=== PATIENT | female | born 1945 | race Two or more races ===

== ENCOUNTER 2024-08-10 18:28 | Inpatient (IN) | payer MEDICARE, MEDICAID ==
[~2024-08-10] VITALS: Ht 157.5 cm; Wt 84.0 kg
--- NOTE | 2024-08-10 19:25 | ED.PDOC ---
HPI Comments HPI: Poor Historian. 79-year-old female presents to the emergency department for evaluation of midsternal chest pressure pain nonradiating constant. No alleviating or precipitating factors. Patient has been having cough and chills and nausea and dizziness for the last four days. All her family members are sick with similar symptoms. Past Medcial History: Hypertension, diabetes, Past Surgical History: Ear and eye surgery REVIEW OF SYSTEMS: CONSTITUTIONAL: Denies acute: fever, diaphoresis, HEAD: Denies acute: headache, photophobia Eyes: Denies acute: Double vision, vision loss, eye pain, eye discharge. EARS: Denies acute: tinnitus, hearing loss, ear discharge, ear pain, THROAT: Denies acute: sore throat, swelling, difficulty swallowing , pain with swallowing, change in voice. NECK: Denies acute: neck pain, neck swelling, stiff neck. HEART: Denies acute : palpitations, LUNGS: Denies acute: wheezing, hemoptysis ABDOMEN: Denies acute: abdominal pain, Vomiting, diarrhea, melena , hematemesis, hematochezia SKIN: Denies acute: rash, redness, lesions, itchiness. EXTREMITIES: Denies acute: calf pain, numbness, tingling, weakness, denies pain in extremity. Denies acute: Low back pain. Neuro: Denies acute: focal neurological deficit, motor or sensory focal neurological deficit, tremors, seizure like activity, confusion, change in mental status, loss of bowel or bladder function, cauda equina like symptoms. : Denies acute: dysuria, hematuria, flank pain, increase in urinary frequency. PSYCH: Denies acute: hallucination, suicidal ideation, homicidal ideation. FEMALE: Denies acute: abnormal vaginal bleeding, foul odor, unusual discharge. PHYSICAL EXAM: General: no acute distress, awake and alert. Head: normocephalic, atraumatic. Neck: supple, trachea is midline, no swelling. Throat: Normal phonation. Eyes:, no erythema, no purulent discharge, no proptosis, no icterus. Heart: regular rate, regular rhythm, no significant murmur appreciated. Lungs: no apparent respiratory distress, No wheezing, bilateral rhonchi, no crackles. No stridors Abdomen: non tender to palpation, non distended, soft, no guarding, no rebound, + bowel sounds. Neuro: Awake, Alert, oriented to name, self, situation, follows commands GCS=15. Speech is normal. Skin: no petechia, no purpura, no cyanosis, non-pale, not jaundice. Lower extremities: --trace bilateral - Pitting edema no deformity, no focal swelling, no calf TTP. Makes eye contact. moves all four extremities. Face: no apparent facial droop. Chief Complaint: Chest Pain Time Seen by MD: 19:05 Reviewed Notes: Nurses Notes, Medications, Allergies Allergies: Coded Allergies: Gabapentin (Verified Allergy, Unknown, 08/10/24) Tramadol (Verified Allergy, Unknown, 08/10/24) Information Source: Patient Departure 1 Departure Time of Disposition: 19:24 Impression: Primary Impression: Chest pain Disposition: ADMITTED INPATIENT Admit to: Tele Condition: Guarded Discharged With: Self ABILIO LEES DO Aug 10, 2024 19:25
[2024-08-10] MEDS: cefTRIAXone 1GM/50ML D5W 50 ML IV ONE (19:30)
[2024-08-10] MEDS: IPRATROPIUM BROM 0.5 MG/2.5ML INH SOL NEB ONE (19:58)
[2024-08-10] MEDS: ALBUTEROL SULF 2.5 MG/0.5ML(0.5%) NEB SOLN NEB ONE (19:58)
[2024-08-10 20:00] LABS: Basophils # (auto) 0.1 10 ^3/uL (0-0.2); Basophils % (auto) 0.6 % (0.0-2.0); Eosinophils # (auto) 0.2 10 ^3/uL (0-0.8); Eosinophils % (auto) 2.6 % (0.0-7.0); Hematocrit 39.7 % (36.0-46.0); Hemoglobin 13.3 g/dL (12.2-16.2); Lymphocytes # (auto) 2.8 10 ^3/uL (0.4-5.4); Lymphocytes % (auto) 30.8 % (10.0-50.0); Mean Corpuscular Hemoglobin 30.5 pg (28.0-32.0); Mean Corpuscular Hgb Conc. 33.5 g/dL (32.0-36.0); Monocytes # (auto) 1.1 10 ^3/uL (0-1.3); Monocytes % (auto) 11.6 % (0.0-12.0); Neutrophils % (auto) 54.4 % (37.0-80.0); Nucleated Red Blood Cells % 0.1 %; Platelet Count (auto) 204 10^3/uL (140-450); Red Blood Cells 4.37 10^6/uL (4.0-5.20); Red Cell Distribution Width 14.5 % (11.8-14.3); White Blood Cell 9.2 10^3/uL (4.4-10.8)
[2024-08-10 20:32] LABS: Alanine Aminotransferase 39 U/L (7-40); Albumin 3.7 g/dL (3.2-4.8); Alkaline Phosphatase 75 U/L (46-116); Anion Gap 8 (5-15); Aspartate Aminotransferase 39 U/L (13-40); BUN/Creatinine Ratio 27.5 (10.0-20.0); Blood Urea Nitrogen 14 mg/dL (9-23); Calcium 8.8 mg/dL (8.7-10.4); Carbon Dioxide 25 mmol/L (20-31)
[2024-08-10 20:42] LABS: Bilirubin, Total 0.2 mg/dL (0.2-1.0); Chloride 99 mmol/L (98-107); Glucose 109 mg/dL (74-106); Potassium 4.4 mmol/L (3.5-5.1); Sodium 132 mmol/L (136-145)
--- NOTE | 2024-08-10 21:55 | DVH ---
CHEST RADIOGRAPH Indication: CP Technique: Single frontal view of the chest was obtained Comparison: None FINDINGS: Lines and Tubes: None Lungs: No focal consolidation. Mild interstitial prominence. Pleura: No effusion. No pneumothorax. Cardiomediastinal contours: Unremarkable Bones: No acute osseous abnormality. IMPRESSION: Mild pulmonary vascular congestion. Underlying fibrotic changes can not be excluded.
[2024-08-10] MEDS ORDERED: hydrALAZINE HCL 20 MG/ML VL IV PRN (23:30)
[2024-08-10] MEDS ORDERED: HYDROcodone-ACET 5/325MG TAB PO PRN (23:30)
[2024-08-11] VITALS (19 sets, daily range): BP systolic 128–144; BP diastolic 45–63; PULSE 78–104; RESP 15–20; TEMP 97.7–98.7; O2SAT 90–100
--- NOTE | 2024-08-11 00:37 | DVHHPRES ---
History of Present Illness Resident Creating Document: JHJADE RAISERGIO RESIDENT History of Present Illness Patient is a 79-year-old female with a reported past medical history of type 2 diabetes mellitus and hypertension came to the ED with a chief complaint of chest pain since yesterday. Patient reports that since the last Thursday she has had flu-like symptoms with cough with expectoration of yellowish phelgm which has been associated with blood since yesterday, fever and chills. All the family members in the house were recently sick with the flu. Since yesterday patient reported that the chest pain increased and she felt pressure-like pain in the substernal area which increased with a cough and taking deep breaths, nonradiating, not associated with the food intake, no heartburn or indigestion. Patient denies nausea, vomiting, diarrhea but feels bloated. Patient was admitted to the hospital in May 2024 for pneumonia. Past medical history: Type 2 diabetes mellitus, hypertension Past surgical history: ear and eye surgery Social history: Patient lives with her daughter and does not smoke cigarettes, no alcohol, drugs. Home medications: medications currently not reported by the patient and felicia persaud Review of Systems Review of Systems patient reports mild shortness of breath and chest pain which increases with coughing and taking deep breaths Reports dysuria and bloating Denies chills, nausea, vomiting Allergies: Coded Allergies: Gabapentin (Verified Allergy, Unknown, 08/10/24) Tramadol (Verified Allergy, Unknown, 08/10/24) Medications Current Medications Medications Dose Ordered Sig/Syed Route Start Time Stop Time Status Last Admin Dose Admin Ceftriaxone Sodium 50 ml @ 100 mls/hr Q24H IV 08/11/24 21:00 Albuterol 2.5 mg Q8HR NEB 08/11/24 04:00 Ipratropium [place] 0.5 mg Q8HR NEB 08/11/24 04:00 Azithromycin 500 mg DAILY@0000 PO 08/12/24 00:00 Acetaminophen 650 mg Q6HP PRN PO 08/10/24 23:30 Acetaminophen/ Hydrocodone Bitart 1 tab Q6HPRN PRN PO 08/10/24 23:30 UNV Hydralazine HCl 10 mg Q6HP PRN IV 08/10/24 23:30 Enoxaparin Sodium 40 mg DAILY SC 08/11/24 10:00 UNV Famotidine 20 mg HS PO 08/11/24 22:00 UNV Exam Vital Signs Vital Signs Date Time Temp Pulse Resp B/P (MAP) Pulse Ox O2 Delivery O2 Flow Rate FiO2 08/10/24 22:14 87 08/10/24 19:58 93 Room Air* 0 21 08/10/24 19:58 18 08/10/24 19:08 98.0 137/55 (82) Exam Physical Examination Constitutional: Patient alert and oriented to time, place and person and appears to be in mild distress because of the cough and chest pain. Gen - no pallor, no icterus, no cyanosis, no clubbing, no LAD, no edema . Skin - Patients skin is warm and dry. HEENT - normocephalic, atraumatic, moist mucous membranes. Neck - full ROM, no LAD, no JVD Pulmonary - B/L equal air entry with the scattered coarse crackles , no wheezing cardiovascular - normal S1,S2 heard. no murmurs heard. GI - soft abdomen without tenderness to palpation. no hepatospleenomegaly. Bowel sounds normoactive Neurological - Bilateral upper extremity strength 5/5, bilateral lower extremity strength 5/5, no facial droop, normal speech, no tremor, no sensory deficiets. Labs/Xrays Labs Test 08/10/24 20:01 08/10/24 18:54 Range/Units Lactic Acid Level 0.9 0.4-2.0 mmol/L Troponin I High Sensitivity 3 L </=34 ng/L White Blood Count 9.2 4.4-10.8 10^3/uL Red Blood Count 4.37 4.0-5.20 10^6/uL Hemoglobin 13.3 12.2-16.2 g/dL Hematocrit 39.7 36.0-46.0 % Mean Corpuscular Volume 91.0 80.0-100.0 fL Mean Corpuscular Hemoglobin 30.5 28.0-32.0 pg Mean Corpuscular Hemoglobin Concent 33.5 32.0-36.0 g/dL Red Cell Distribution Width 14.5 H 11.8-14.3 % Platelet Count 204 140-450 10^3/uL Mean Platelet Volume 8.3 6.9-10.8 fL Neutrophils (%) (Auto) 54.4 37.0-80.0 % Lymphocytes (%) (Auto) 30.8 10.0-50.0 % Monocytes (%) (Auto) 11.6 0.0-12.0 % Eosinophils (%) (Auto) 2.6 0.0-7.0 % Basophils (%) (Auto) 0.6 0.0-2.0 % Neutrophils # (Auto) 5.0 1.6-8.6 10 ^3/uL Lymphocytes # (Auto) 2.8 0.4-5.4 10 ^3/uL Monocytes # (Auto) 1.1 0-1.3 10 ^3/uL Eosinophils # (Auto) 0.2 0-0.8 10 ^3/uL Basophils # (Auto) 0.1 0-0.2 10 ^3/uL Nucleated Red Blood Cells 0.1 % Sodium Level 132 L 136-145 mmol/L Potassium Level 4.4 3.5-5.1 mmol/L Chloride Level 99 98-107 mmol/L Carbon Dioxide Level 25 20-31 mmol/L Anion Gap 8 5-15 Blood Urea Nitrogen 14 9-23 mg/dL Creatinine 0.51 L 0.550-1.02 mg/dL Glomerular Filtration Rate Calc 95 >90 mL/min BUN/Creatinine Ratio 27.5 H 10.0-20.0 Serum Glucose 109 H 74-106 mg/dL Calcium Level 8.8 8.7-10.4 mg/dL Magnesium Level 1.6 1.6-2.6 mg/dL Total Bilirubin 0.2 0.2-1.0 mg/dL Aspartate Amino Transferase (AST) 39 13-40 U/L Alanine Aminotransferase (ALT) 39 7-40 U/L Alkaline Phosphatase 75 46-116 U/L B-Type Natriuretic Peptide 83.96 0-100 pg/mL Total Protein 6.0 5.7-8.2 g/dL Albumin 3.7 3.2-4.8 g/dL Assessment/Plan Assessment/Plan Acute respiratory distress Suspected community acquired pneumonia likely ?viral ?gram+/- ?atypical - COVID and influenza pending - MRSA pending - on ceftriaxone 1 g IV and azithromycin 500 mg p.o. daily - albuterol 2.5 and ipratropium 0.5 medneb q.8 hr - incentive spirometry Acute chest pain, r/o ACS ?pleuritic chest pain - 12 lead ECG shows no acute ST segment or T-wave changes - troponin levels trended WNL - given aspirin 325 mg and atorvastatin 40 mg - on aspirin 81 mg q.d. and atorvastatin 40 mg q.h.s. - acetamiophen and norco for pain control H/o hypertension ? Congestive heart failure - chest x-ray showed mild pulmonary vascular congestion, underlying fibrotic changes could not be excluded - echo pending - Home medications not yet reported by the patient - on hydralazine p.r.n. H/o T2DM - Hba1c pending - as the blood sugar is under normal limits, insulin is not started yet - goal blood glucose 140-180mg/dl DVT prophylaxis: Enoxaparin 40mg SC qd PUD prophylaxis: Famotidine 20 mg qd Goals of care discussed with the patient and her daughter for over 25 minutes. Full code Plan discussed with Dr. Lim Plan discussed with: Patient, Daughter My Orders Orders - ASTRID RUEDA RESIDENT Procedure Category Date Status Time Admit ADMIT 08/10/24 Transmitted 22:22 Respiratory Culture MUKUL 08/10/24 Logged W/ Gs 22:22 C-Reactive Protein LAB 08/11/24 Logged 02:00 Complete Blood Count LAB 08/11/24 Logged 02:00 Comprehensive LAB 08/11/24 Logged Metabolic Panel 02:00 Mrsa Screen MUKUL 08/10/24 Logged 22:22 Drug Screen LAB 08/10/24 Logged 22:22 Ceftriaxone 1gm/50ml PHA 08/11/24 In Process D5w (Rocephin) 21:00 Albuterol Medneb PHA 08/11/24 In Process (Ventolin Medneb) 04:00 Ipratropium Medneb PHA 08/11/24 In Process (Atrovent Medneb) 04:00 Code Status CODE 08/10/24 Transmitted 23:18 Acetaminophen Tablet PHA 08/10/24 In Process (Tylenol Tablet) 23:30 Hydrocodone-Acet PHA 08/10/24 Pending 5/325mg Tab ([place] 23:30 Hydralazine Injection PHA 08/10/24 In Process (Apresoline Inject 23:30 Magnesium Sulfate PHA 08/10/24 In Process 1gm/100ml 23:45 Azithromycin Tablet PHA 08/12/24 In Process (Zithromax Tablet) 00:00 Enoxaparin Sodium PHA 08/11/24 Logged (Lovenox) 10:00 Incentive Spirometry ORDERS 08/11/24 Transmitted 00:28 Famotidine Tablet PHA 08/11/24 Logged (Pepcid Tablet) 00:30 Famotidine Tablet PHA 08/11/24 Logged (Pepcid Tablet) 22:00 Hemoglobin A1c LAB 08/11/24 Logged 02:00 Echo 2d Mode Cardiac US 08/11/24 Logged DOP 00:28 Date of Service: Aug 10, 2024 Billing Provider: KULWANT LIM MD Common Visit Codes: [id number] INP/OBS CARE (HIGH) Secondary Visit Codes: [id number] CARE PLAN 30 MINUTES ASTRID RUEDA RESIDENT Aug 11, 2024 00:37 KULWANT LIM MD Aug 11, 2024 17:46
[2024-08-11] MEDS: FAMOTIDINE 20 MG TAB PO ONE (02:38)
[2024-08-11] MEDS: ASPirin 325 MG TAB PO ONE (02:38)
[2024-08-11] MEDS: AZITHROMYCIN 250 MG TAB PO ONE (02:38)
[2024-08-11] MEDS: ATORVASTATIN 20 MG TAB PO ONE (02:38)
[2024-08-11] MEDS: methylPREDNISolone SOD SUCC 125 MG/2 ML VL IV ONE (03:00)
[2024-08-11] MEDS: IPRATROPIUM BROM 0.5 MG/2.5ML INH SOL NEB SCH (03:44)
[2024-08-11] MEDS: ALBUTEROL SULF 2.5 MG/0.5ML(0.5%) NEB SOLN NEB SCH (03:44)
[2024-08-11 04:44] LABS: Basophils # (auto) 0 10 ^3/uL (0-0.2); Basophils % (auto) 0.4 % (0.0-2.0); Eosinophils # (auto) 0.1 10 ^3/uL (0-0.8); Eosinophils % (auto) 1.2 % (0.0-7.0); Hematocrit 40.6 % (36.0-46.0); Hemoglobin 13.8 g/dL (12.2-16.2); Lymphocytes # (auto) 3.7 10 ^3/uL (0.4-5.4); Lymphocytes % (auto) 38.6 % (10.0-50.0); Mean Corpuscular Hemoglobin 30.8 pg (28.0-32.0); Mean Corpuscular Hgb Conc. 33.9 g/dL (32.0-36.0); Mean Corpuscular Volume 90.8 fL (80.0-100.0); Monocytes # (auto) 0.9 10 ^3/uL (0-1.3); Neutrophils # (auto) 4.9 10 ^3/uL (1.6-8.6); Neutrophils % (auto) 50.8 % (37.0-80.0); Nucleated Red Blood Cells % 0.2 %; Platelet Count (auto) 212 10^3/uL (140-450); Red Blood Cells 4.47 10^6/uL (4.0-5.20); Red Cell Distribution Width 14.4 % (11.8-14.3); White Blood Cell 9.6 10^3/uL (4.4-10.8)
[2024-08-11 04:58] LABS: Alanine Aminotransferase 36 U/L (7-40); Alkaline Phosphatase 73 U/L (46-116); Anion Gap 6 (5-15); Aspartate Aminotransferase 33 U/L (13-40); Blood Urea Nitrogen 11 mg/dL (9-23); Calcium 9.5 mg/dL (8.7-10.4); Carbon Dioxide 28 mmol/L (20-31); Potassium 3.9 mmol/L (3.5-5.1)
[2024-08-11 04:59] LABS: Bilirubin, Total 0.4 mg/dL (0.2-1.0); Total Protein 6.8 g/dL (5.7-8.2)
[2024-08-11 05:01] LABS: Chloride 97 mmol/L (98-107); Glucose 124 mg/dL (74-106); Sodium 131 mmol/L (136-145)
[2024-08-11 05:12] LABS: CRP High Sensitivity 3.21 mg/dL (<1.0)
[2024-08-11] MEDS: MAGNESIUM SULFATE 1GM/100ML 100 ML IV ONE (06:05)
[2024-08-11 06:39] LABS: COVID19 ANTIGEN SOFIA FIA NEGATIVE (NEGATIVE)
--- NOTE | 2024-08-11 07:39 | DVHPNRES ---
Progress Note Date Seen: Aug 11, 2024 Resident Creating Document: DEBORAH REYES RESIDENT Medical Necessity Reason Pt with a Central, PICC or Fol: No Subjective Review of Systems Patient is a 79-year-old female with past medical history of diabetes, hypertension, migraine, fibromyalgia, who was brought in by her daughter due to worsening cough. According to the patient, she was hospitalized in June 2024 for similar symptoms and was diagnosed with pneumonia. She notes for the past 8 days, she has been having dyspnea, shortness of breaths along with a productive cough producing darkish green sputum along with 2 episodes of hemoptysis. Patient notes that she gets tired breathing and her symptoms progressively worsened along with body aches which brought her to the hospital. Denies having any sick contacts. Past surgical history: Cataract removal surgery Past Hospitalization: In June 2024 for pneumonia Social & Personal history: Patient lives with her daughter. Denies using tobacco, alcohol, drugs. Allergies: Gabapentin, tramadol Patient seen and examined at bedside. Patient is alert and oriented to time, place person and responding to all questions. General: Fatigue, chills Eyes: No Pain, No Vision change, No Conjunctivae inflammation, No Eyelid inflammation, No Other, No Redness ENT: No Ear pain, No Ear discharge, No Nose pain, congestion, rhinorrhea, No Mouth pain, No Mouth swelling, No Throat pain, No Throat swelling, No Other Cardiovascular: No Chest Pain, Palpitations, No Orthopnea, Dyspnea, No Edema, No Lt Headedness, No Other Respiratory: Productive cough, Shortness of breath, No SOB with exertion, No Wheezing, No Hemoptysis, No Pleuritic Pain, No Sputum, No Other Gastrointestinal: No Nausea, No Vomiting, No Abdominal Pain, No Diarrhea, No Constipation, No Melena, No Hematochezia, No Other Genitourinary: No Dysuria, No Frequency, No Incontinence, No Hematuria, No Retention, No Other Musculoskeletal: No other, No neck pain, No shoulder pain, No arm pain, No back pain, No hand pain, No leg pain, No foot pain Skin: No Rash, No Lesions, No Jaundice, No Bruising, No Other Objective vital signs Vital Sign Date Time Temp Pulse Resp B/P (MAP) Pulse Ox O2 Delivery O2 Flow Rate FiO2 08/11/24 06:26 80 16 100 08/11/24 06:20 Nasal Cannula* 2 28 08/11/24 01:30 98.0 137/55 98.0 Total Intake and Output 08/10/24 08/10/24 08/11/24 14:59 22:59 06:59 Intake Total 50 ml Balance 50 ml medications Current Medications Medications Dose Ordered Sig/Syed Route Start Time Stop Time Status Last Admin Dose Admin Ceftriaxone Sodium 50 ml @ 100 mls/hr Q24H IV 08/11/24 21:00 Albuterol 2.5 mg Q8HR NEB 08/11/24 04:00 08/11/24 06:20 2.5 MG Ipratropium [place] 0.5 mg Q8HR NEB 08/11/24 04:00 08/11/24 06:20 0.5 MG Azithromycin 500 mg DAILY@0000 PO 08/12/24 00:00 Acetaminophen 650 mg Q6HP PRN PO 08/10/24 23:30 Acetaminophen/ Hydrocodone Bitart 1 tab Q6HPRN PRN PO 08/10/24 23:30 UNV Hydralazine HCl 10 mg Q6HP PRN IV 08/10/24 23:30 Enoxaparin Sodium 40 mg DAILY SC 08/11/24 10:00 Famotidine 20 mg HS PO 08/11/24 22:00 Atorvastatin Calcium 40 mg HS PO 08/11/24 22:00 Aspirin 81 mg DAILY PO 08/11/24 10:00 Examination General Appearance: Cooperative. Well developed. Well nourished. NAD Head Exam: Normal inspection Neck Exam: Normal inspection. Non-tender. Normal alignment Pulmonary/Respiratory: Chest non-tender. Clear bilateral breath sounds, no crackles, no wheezing, rhonchi heard. Cardiovascular/Chest: Regular rate and rhythm. No murmurs. No JVD. Peripheral Pulses: 2+ Radial (R). 2+ Radial (L). 2+ Pedal (R). 2+ Pedal (L) Abdominal Exam: Normal bowel sounds. Soft. normal abdomen, no visible veins, Nontender. No hepatospenomegaly. No masses Ankle Exam: Negative ankle edema Lower extremities: Negative lower extremity edema Neuro/Mental Status: A&O x4. Coherent. Thoughts/Psych: Normal thought pattern. Appropriate mood and affect. Good judgement and insight Skin Exam: Normal inspection. Normal color. Warm. Dry laboratory and microbiology Laboratory Tests 08/11/24 04:10 Test 1/9/25 04:10 Range/Units Serum Glucose 124 H 74-106 mg/dL Labs and/or images reviewed: Labs reviewed by me, Image(s) reviewed by me Problem List/Assessment/Plan Problem List/Assessment/Plan Community-acquired pneumonia, Gram-positive versus Gram-negative Acute hypoxic respiratory failure, on 2 L O2 via NC - CXR: Mild pulmonary vascular congestion - COVID and influenza testing negative - IV ceftriaxone, IV azithromycin - ipratropium albuterol med nebs - IV methylprednisolone 125 mg once Type 2 diabetes, Hb A1c 6.7 Hypertension - aspirin 81 mg, atorvastatin 40 mg - mild sliding scale insulin Hyponatremia, improving - monitor PUD prophylaxis: Pepcid 20 mg DVT prophylaxis: Levonox 40mg Goals of care: Full code, discussed for >16 minutes on 08/11/2024 Plan discussed with patient Plan discussed with Dr. Somers Plan discussed with: Patient, Other (RN) Date of Service: Aug 11, 2024 Billing Provider: JASON SOMERS MD Common Visit Codes: [id number] INP/OBS CARE(HIGH) DEBORAH REYES RESIDENT Aug 11, 2024 07:39 JASON SOMERS MD Aug 15, 2024 21:50
[2024-08-11] MEDS: ASPirin 81 mg TAB PO SCH (10:01)
[2024-08-11] MEDS: ENOXAPARIN SOD 40 MG/0.4 ML SYRINGE SC SCH (10:01)
[2024-08-11 10:41] LABS: Rapid Influenza A Negative (Negative); Rapid Influenza B Negative (Negative)
[2024-08-11] MEDS ORDERED: DEXTROSE (50%) 50ML SYRG IV PRN (11:00)
[2024-08-11] MEDS: ACCU-CHEK COMFORT CURVE STRIP VI SCH (11:07)
[2024-08-11] MEDS: InsuLIN REG 1unit/0.01ml Soln (100units/ml) SC SCH (11:23)
[2024-08-11] MEDS: ACETAMINOPHEN 325 MG TAB PO PRN (14:05)
[2024-08-11] MEDS ORDERED: SIMV40TA18 PO (14:44)
[2024-08-11] MEDS ORDERED: OMEP20TA PO (14:45)
[2024-08-11] MEDS ORDERED: ALEN70TA21 PO (14:45)
[2024-08-11] MEDS ORDERED: DULO20CA PO (14:45)
[2024-08-11] MEDS ORDERED: AMLO1TAB22 PO (14:45)
[2024-08-11] MEDS ORDERED: CARV6.2517 PO (14:45)
[2024-08-11] MEDS ORDERED: ERGO1CAP23 PO (14:45)
--- NOTE | 2024-08-11 19:09 | ECG ---
[facility] Test Date: 2024-08-10 Test Time: 19:52:37 Pat Name: YAIMA MONTES Department: ER Room: 0273 A Gender: F Unit Supervisor: ER : 1945 Requested By: ABILIO LEES Order Number: [id number] Reading MD: Ramin Garcia Measurements Intervals [place] Rate: 81 P: 45 [place]: 139 QRS: -48 QRSD: 105 T: 59 QT: 390 QTc: 453 Interpretive Statements Sinus rhythm Left anterior fascicular block Abnormal R-wave progression, early transition Left ventricular hypertrophy Electronically Signed On 08-12-2024 13:07:19 PST by Ramin Garcia Please click the below link to view image of tracing.
--- NOTE | 2024-08-11 19:09 | ECG ---
[facility] Test Date: 2024-08-10 Test Time: 18:42:32 Pat Name: YAIMA MONTES Department: ER Room: 0273 A Gender: F Oil Treater: CHANELLE : 1945 Requested By: ABILIO LEES Order Number: [id number] Reading MD: Ramin Garcia Measurements Intervals [place] Rate: 77 P: 27 [place]: 139 QRS: -46 QRSD: 102 T: 28 QT: 395 QTc: 448 Interpretive Statements Sinus rhythm Left anterior fascicular block Abnormal R-wave progression, early transition Left ventricular hypertrophy Electronically Signed On 08-12-2024 13:07:06 PST by Ramin Garcia Please click the below link to view image of tracing.
--- NOTE | 2024-08-11 19:10 | ECG ---
[facility] Test Date: 2024-08-10 Test Time: 22:14:37 Pat Name: YAIMA MONTES Department: ER Room: 0273 A Gender: F Stone Gang Sawyer: ER : 1945 Requested By: ABILIO LEES Order Number: [id number] Reading MD: Ramin Garcia Measurements Intervals [place] Rate: 87 P: 51 [place]: 145 QRS: -51 QRSD: 97 T: 62 QT: 372 QTc: 448 Interpretive Statements Sinus rhythm Left anterior fascicular block Abnormal R-wave progression, early transition Probable left ventricular hypertrophy Electronically Signed On 08-12-2024 13:08:53 PST by Ramin Garcia Please click the below link to view image of tracing.
[2024-08-11] MEDS: FAMOTIDINE 20 MG TAB PO SCH (21:47)
[2024-08-11] MEDS: ATORVASTATIN 20 MG TAB PO SCH (21:48)
[2024-08-11] MEDS: cefTRIAXone 1GM/50ML D5W 50 ML IV SCH (21:48)
[2024-08-12] VITALS (14 sets, daily range): BP systolic 122–171; BP diastolic 53–75; PULSE 69–98; RESP 16–21; TEMP 97.5–98.5; O2SAT 90–98
[2024-08-12] MEDS: AZITHROMYCIN 250 MG TAB PO SCH (00:52)
[2024-08-12] MEDS ORDERED: VANCOMYCIN PER PHARMACY 0 MG IV SCH (13:15)
[2024-08-12] MEDS ORDERED: VANCOMYCIN 1.25GM/250ML 250 ML IV ONE (13:30)
[2024-08-12 15:09] LABS: Base Excess 3.4 mmol/L (-2.0-3.0)
[2024-08-12] MEDS: DOXYCYCLINE 100 MG TAB/CAP PO ONE (15:20)
[2024-08-12] MEDS: predniSONE 20 MG TAB PO ONE (15:20)
--- NOTE | 2024-08-12 16:54 | DVHPNRES ---
Progress Note Date Seen: Aug 12, 2024 Resident Creating Document: DEBORAH REYES RESIDENT Medical Necessity Reason Pt with a Central, PICC or Fol: No Subjective Review of Systems Patient is a 79-year-old female with past medical history of diabetes, hypertension, migraine, fibromyalgia, who was brought in by her daughter due to worsening cough. According to the patient, she was hospitalized in June 2024 for similar symptoms and was diagnosed with pneumonia. She notes for the past 8 days, she has been having dyspnea, shortness of breaths along with a productive cough producing darkish green sputum along with 2 episodes of hemoptysis. Patient notes that she gets tired breathing and her symptoms progressively worsened along with body aches which brought her to the hospital. Denies having any sick contacts. Past surgical history: Cataract removal surgery Past Hospitalization: In June 2024 for pneumonia Social & Personal history: Patient lives with her daughter. Denies using tobacco, alcohol, drugs. Allergies: Gabapentin, tramadol Patient seen and examined at bedside. Patient is alert and oriented to time, place person and responding to all questions. Objective vital signs Vital Sign Date Time Temp Pulse Resp B/P (MAP) Pulse Ox O2 Delivery O2 Flow Rate FiO2 08/12/24 14:59 88 18 98 08/12/24 13:00 97.5 122/53 (76) 97.5 08/12/24 10:00 Nasal Cannula* 2 28 Total Intake and Output 08/11/24 08/11/24 08/12/24 15:00 23:00 07:00 Intake Total 100 ml 300 ml 400 ml Output Total 600 ml Balance 100 ml -300 ml 400 ml medications Current Medications Medications Dose Ordered Sig/Syed Route Start Time Stop Time Status Last Admin Dose Admin Ceftriaxone Sodium 50 ml @ 100 mls/hr Q24H IV 08/11/24 21:00 08/11/24 21:48 100 MLS/HR Albuterol 2.5 mg Q8HR NEB 08/11/24 04:00 08/12/24 14:53 2.5 MG Ipratropium [place] 0.5 mg Q8HR NEB 08/11/24 04:00 08/12/24 14:53 0.5 MG Azithromycin 500 mg DAILY@0000 PO 08/12/24 00:00 08/12/24 00:52 500 MG Acetaminophen 650 mg Q6HP PRN PO 08/10/24 23:30 08/12/24 09:38 650 MG Enoxaparin Sodium 40 mg DAILY SC 08/11/24 10:00 08/12/24 09:37 40 MG Famotidine 20 mg HS PO 08/11/24 22:00 08/11/24 21:47 20 MG Atorvastatin Calcium 40 mg HS PO 08/11/24 22:00 08/11/24 21:48 40 MG Aspirin 81 mg DAILY PO 08/11/24 10:00 08/12/24 09:36 81 MG Diagnostic Test (Pha) 1 strip ACHS 08/11/24 11:30 08/12/24 11:18 1 STRIP Insulin Human Regular ACHS SC 08/11/24 11:30 08/11/24 22:46 3 UNITS Dextrose 50 ml UD PRN IV 08/11/24 11:00 Mupirocin 1 applic BID EACHNOSTRI 08/12/24 22:00 08/17/24 21:59 Prednisone 40 mg DAILY PO 08/13/24 10:00 Doxycycline Monohydrate 100 mg Q12HR PO 08/12/24 22:00 Examination General Appearance: Cooperative. Well developed. Well nourished. NAD Head Exam: Normal inspection Neck Exam: Normal inspection. Non-tender. Normal alignment Pulmonary/Respiratory: Chest non-tender. Clear bilateral breath sounds, no crackles, wheezing, rhonchi heard. Cardiovascular/Chest: Regular rate and rhythm. No murmurs. No JVD. Peripheral Pulses: 2+ Radial (R). 2+ Radial (L). 2+ Pedal (R). 2+ Pedal (L) Abdominal Exam: Normal bowel sounds. Soft. normal abdomen, no visible veins, Nontender. No hepatospenomegaly. No masses Ankle Exam: Negative ankle edema Lower extremities: Negative lower extremity edema Neuro/Mental Status: A&O x4. Coherent. Thoughts/Psych: Normal thought pattern. Appropriate mood and affect. Good judgement and insight Skin Exam: Normal inspection. Normal color. Warm. Dry laboratory and microbiology Laboratory Tests 08/11/24 04:10 Test 08/11/24 04:10 Range/Units Serum Glucose 124 H 74-106 mg/dL Microbiology Date/Time Source Procedure Growth Status 08/11/24 17:30 Nose MRSA Screen - Final Methicillin Resistant S.aureus Complete Labs and/or images reviewed: Labs reviewed by me, Image(s) reviewed by me Problem List/Assessment/Plan Problem List/Assessment/Plan Community-acquired pneumonia, Gram-positive versus Gram-negative Acute hypoxic respiratory failure, on 2 L O2 via NC MRSA nares positive - CXR: Mild pulmonary vascular congestion - COVID and influenza testing negative - IV ceftriaxone - discontinued azithromycin, started patient on doxycycline 100 mg b.i.d. - ipratropium albuterol med nebs - IV methylprednisolone 125 mg once - ipratropium and levalbuterol med nebs Type 2 diabetes, Hb A1c 6.7 Hypertension - aspirin 81 mg, atorvastatin 40 mg - mild sliding scale insulin Hyponatremia, improving - monitor PUD prophylaxis: Pepcid 20 mg DVT prophylaxis: Levonox 40mg Goals of care: Full code, discussed for >16 minutes on 08/11/2024 Plan discussed with patient Plan discussed with Dr. Somers Plan discussed with: Patient, Other My Orders My Orders Orders - DEBORAH REYES Procedure Category Date Status Time Mupirocin 2% Oint PHA 08/12/24 In Process Mrsa Nares (Bactroban 22:00 Prednisone Tablet PHA 08/13/24 In Process 10:00 Doxycycline Tablet PHA 08/12/24 In Process (Vibramycin Tablet) 22:00 Date of Service: Aug 12, 2024 Billing Provider: JASON SOMERS MD Common Visit Codes: [id number] INP/OBS CARE(HIGH) DEBORAH REYES Aug 12, 2024 16:54 JASON SOMERS MD Aug 15, 2024 21:50
--- NOTE | 2024-08-12 21:33 | DVHSR ---
APPROVED REPORT EXAM: LIMITED Two-dimensional and M-mode echocardiogram with Doppler and color Doppler. Blood Pressure: 136/75 mmHg INDICATION SOB RISK FACTORS Height: 5'2, Weight: 174 DIMENSIONS LVDd (3.8-5.7cm)LA (2D)3.5 (1.9-4.0cm)Aortic Root (2.0-3.7cm) EF (%) (55-70%)Rt. Atrium2.7 (1.9-4.0cm)Asc. Aorta cm Mitral Valve MitralMitral Stenosis E wave1.28m/sMV Mean GR.mmHg A wave1.44m/sMV Peak GR.126mmHg E/A ratio0.92D MVAcm2 DECEL [id number] 1/2 Tim[place] Aortic Valve Aortic ValveAortic Stenosis V11.18m/Benjamin Mean GR.9mmHg V22.07m/Benjamin Peak GR.17mmHg LVOT Diameter2.1 (1.8-2.4cm)Doppler AVA1.97cm2 AI P 1/2 Efxf920.72ms Pulmonic Valve V21.28m/s Tricuspid Valve TR Velocity2.75m/s [id number] Other Information Quality : Technically DifficultRhythm : Technically limited study due to pt coughing Conclusion LV EJECTION FRACTION IS 65% MODERATELY CALCIFIED AORTIC LEAFLETS NORMAL MV,TV AND PV NO EFFUSION NORMAL RV FUNCTION CALCIFIED AORTIC LEAFLETS MILD AORTIC STENOSIS AORTC VALVE AREA 1.97 CM SQUARE AND IS REDUCED NORMAL RV FUNCTION
[2024-08-12] MEDS: DOXYCYCLINE 100 MG TAB/CAP PO SCH (21:38)
[2024-08-12] MEDS: NIFEdipine ER 30 MG TAB PO ONE (21:44)
[2024-08-12] MEDS: MUPIROCIN 2% OINT 15gm or 22gm FOR MRSA NARES EACHNOSTRI SCH (22:00)
[2024-08-13] VITALS (10 sets, daily range): BP systolic 111–148; BP diastolic 55–81; PULSE 77–137; RESP 18–20; TEMP 97.6–98.1; O2SAT 90–98
[2024-08-13 06:03] LABS: Chloride 101 mmol/L (98-107); Potassium 3.9 mmol/L (3.5-5.1)
[2024-08-13 06:04] LABS: Anion Gap 5 (5-15); Carbon Dioxide 29 mmol/L (20-31)
[2024-08-13 06:05] LABS: Calcium 9.8 mg/dL (8.7-10.4)
[2024-08-13 06:10] LABS: BUN/Creatinine Ratio 30.4 (10.0-20.0); Blood Urea Nitrogen 14 mg/dL (9-23)
[2024-08-13 06:11] LABS: Basophils # (auto) 0.1 10 ^3/uL (0-0.2); Basophils % (auto) 0.6 % (0.0-2.0); Eosinophils # (auto) 0 10 ^3/uL (0-0.8); Eosinophils % (auto) 0.1 % (0.0-7.0); Hematocrit 40.2 % (36.0-46.0); Hemoglobin 13.5 g/dL (12.2-16.2); Lymphocytes # (auto) 2.9 10 ^3/uL (0.4-5.4); Lymphocytes % (auto) 26.6 % (10.0-50.0); Mean Corpuscular Hemoglobin 31.1 pg (28.0-32.0); Mean Corpuscular Hgb Conc. 33.7 g/dL (32.0-36.0); Mean Corpuscular Volume 92.4 fL (80.0-100.0); Monocytes # (auto) 0.9 10 ^3/uL (0-1.3); Monocytes % (auto) 8.6 % (0.0-12.0); Neutrophils # (auto) 6.9 10 ^3/uL (1.6-8.6); Neutrophils % (auto) 64.1 % (37.0-80.0); Nucleated Red Blood Cells % 0.1 %; Platelet Count (auto) 321 10^3/uL (140-450); Red Blood Cells 4.35 10^6/uL (4.0-5.20); Red Cell Distribution Width 14.5 % (11.8-14.3); White Blood Cell 10.8 10^3/uL (4.4-10.8)
[2024-08-13 06:36] LABS: Glucose 130 mg/dL (74-106); Sodium 135 mmol/L (136-145)
[2024-08-13] MEDS: predniSONE 20 MG TAB PO SCH (10:27)
[2024-08-13] MEDS ORDERED: PRED1PAK9 PO (13:11)
[2024-08-13] MEDS ORDERED: DOXY-346 PO (13:11)
--- NOTE | 2024-08-13 13:48 | DVHDSRES ---
Discharge Summary Date of Admission Resident Creating Document: DEBORAH REYES RESIDENT Aug 10, 2024 at 22:22 Date of Discharge: Aug 13, 2024 Admitting Diagnosis Shortness of breaths Labs/Diagnostic Data: Laboratory Results Test 08/13/24 11:46 08/13/24 05:07 08/12/24 15:01 08/11/24 09:45 POC Glucose 136 mg/dl (70-106) White Blood Count 10.8 10^3/uL (4.4-10.8) Red Blood Count 4.35 10^6/uL (4.0-5.20) Hemoglobin 13.5 g/dL (12.2-16.2) Hematocrit 40.2 % (36.0-46.0) Mean Corpuscular Volume 92.4 fL (80.0-100.0) Mean Corpuscular Hemoglobin 31.1 pg (28.0-32.0) Mean Corpuscular Hemoglobin Concent 33.7 g/dL (32.0-36.0) Red Cell Distribution Width 14.5 % (11.8-14.3) Platelet Count 321 10^3/uL (140-450) Mean Platelet Volume 7.9 fL (6.9-10.8) Neutrophils (%) (Auto) 64.1 % (37.0-80.0) Lymphocytes (%) (Auto) 26.6 % (10.0-50.0) Monocytes (%) (Auto) 8.6 % (0.0-12.0) Eosinophils (%) (Auto) 0.1 % (0.0-7.0) Basophils (%) (Auto) 0.6 % (0.0-2.0) Neutrophils # (Auto) 6.9 10 ^3/uL (1.6-8.6) Lymphocytes # (Auto) 2.9 10 ^3/uL (0.4-5.4) Monocytes # (Auto) 0.9 10 ^3/uL (0-1.3) Eosinophils # (Auto) 0 10 ^3/uL (0-0.8) Basophils # (Auto) 0.1 10 ^3/uL (0-0.2) Nucleated Red Blood Cells 0.1 % Sodium Level 135 mmol/L (136-145) Potassium Level 3.9 mmol/L (3.5-5.1) Chloride Level 101 mmol/L (98-107) Carbon Dioxide Level 29 mmol/L (20-31) Anion Gap 5 (5-15) Blood Urea Nitrogen 14 mg/dL (9-23) Creatinine 0.46 mg/dL (0.550-1.02) Glomerular Filtration Rate Calc 97 mL/min (>90) BUN/Creatinine Ratio 30.4 (10.0-20.0) Serum Glucose 130 mg/dL (74-106) Calcium Level 9.8 mg/dL (8.7-10.4) Blood Gas Specimen Type Arterial Blood Gas Sample Site Right radial Blood Gas Patient Temperature 37.0 Arterial Blood Date Drawn [id number] Arterial Blood pH 7.435 (7.350-7.450) Arterial Blood Partial Pressure CO2 42.7 mmHg (32.0-45.0) Arterial Blood Partial Pressure O2 66.3 mmHg (83.0-108.0) Arterial Blood HCO3 28.0 mmol/L (21.0-28.0) Arterial Blood Oxygen Saturation 92.7 % (94.0-98.0) Arterial Blood Base Excess 3.4 mmol/L (-2.0-3.0) Arterial Blood Oxyhemoglobin 92.3 % (94.0-98.0) Arterial Blood Carboxyhemoglobin 0.3 % (0.5-1.5) Arterial Blood Methemoglobin 0.1 % (0.0-1.5) Chris Test Yes Blood Gas Total Hemoglobin 14.50 g/dL (12.0-16.0) Blood Gas Liter Flow 2.00 Blood Gas Modality Nasal cannula FiO2 % 28.0 Influenza Type A Antigen Negative (Negative) Influenza Type B Antigen Negative (Negative) Test 08/11/24 05:45 08/11/24 04:10 08/10/24 20:01 08/10/24 18:54 SARS-CoV-2 Antigen (Rapid) Negative (NEGATIVE) Hemoglobin A1c 6.7 % A1C (<5.7) Serum Osmolality 275 mOsm/kg (278-298) Total Bilirubin 0.4 mg/dL (0.2-1.0) Aspartate Amino Transferase (AST) 33 U/L (13-40) Alanine Aminotransferase (ALT) 36 U/L (7-40) Alkaline Phosphatase 73 U/L (46-116) C-Reactive Protein High Sensitivity 3.21 mg/dL (<1.0) Total Protein 6.8 g/dL (5.7-8.2) Albumin 4.0 g/dL (3.2-4.8) Thyroid Stimulating Hormone (TSH) 0.70 uIU/mL (0.55-4.78) Lactic Acid Level 0.9 mmol/L (0.4-2.0) Troponin I High Sensitivity 3 ng/L (</=34) Magnesium Level 1.6 mg/dL (1.6-2.6) B-Type Natriuretic Peptide 83.96 pg/mL (0-100) Other Laboratory Tests 08/13/24 05:07 Brief Hx & Hospital Course: Patient is a 79-year-old female with past medical history of diabetes, hypertension, migraine, fibromyalgia, who was brought in by her daughter due to worsening cough. According to the patient, she was hospitalized in June 2024 for similar symptoms and was diagnosed with pneumonia. She notes for the past 8 days, she has been having dyspnea, shortness of breaths along with a productive cough producing darkish green sputum along with 2 episodes of hemoptysis. Patient notes that she gets tired breathing and her symptoms progressively worsened along with body aches which brought her to the hospital. Denies having any sick contacts. Hospital course: Chest x-ray showed mild pulmonary vascular congestion, COVID and influenza testing was negative. Patient was started on IV ceftriaxone and initially azithromycin, however, later patient was transitioned to doxycycline 100 mg b.i.d. along with ipratropium albuterol med nebs. Patient also received IV methylprednisolone 125 mg once and then was transitioned to prednisone 40 mg p.o.. Home medication aspirin, atorvastatin were continued and diabetes was controlled on a mild sliding scale of insulin. On the day of discharge, patient noticed significant improvement in her cough and dyspnea. Patient is still had minimal wheezing, however, was titrated to room air and tolerated it well. She was prescribed doxycycline 100 mg twice a day and prednisone 40 mg for 2 days. Her hospital course was uncomplicated. General Appearance: Cooperative. Well developed. Well nourished. NAD Head Exam: Normal inspection Neck Exam: Normal inspection. Non-tender. Normal alignment Pulmonary/Respiratory: Chest non-tender. Clear bilateral breath sounds, no crackles, wheezing, rhonchi heard. Cardiovascular/Chest: Regular rate and rhythm. No murmurs. No JVD. Peripheral Pulses: 2+ Radial (R). 2+ Radial (L). 2+ Pedal (R). 2+ Pedal (L) Abdominal Exam: Normal bowel sounds. Soft. normal abdomen, no visible veins, Nontender. No hepatospenomegaly. No masses Ankle Exam: Negative ankle edema Lower extremities: Negative lower extremity edema Neuro/Mental Status: A&O x4. Coherent. Thoughts/Psych: Normal thought pattern. Appropriate mood and affect. Good judgement and insight Skin Exam: Normal inspection. Normal color. Warm. Dry Operations or Procedures APPROVED REPORT EXAM: LIMITED Two-dimensional and M-mode echocardiogram with Doppler and color Doppler. Blood Pressure: 136/75 mmHg INDICATION SOB RISK FACTORS Height: 5'2, Weight: 174 DIMENSIONS LVDd (3.8-5.7cm) LA (2D) 3.5 (1.9-4.0cm) Aortic Root (2.0-3.7cm) EF (%) (55-70%) Rt. Atrium 2.7 (1.9-4.0cm) Asc. Aorta cm Mitral Valve Mitral Mitral Stenosis E wave 1.28m/s MV Mean GR. mmHg A wave 1.44m/s MV Peak GR. 126mmHg E/A ratio 0.9 2D MVA cm2 DECEL Time 285ms PRESS 1/2 Time ms Aortic Valve Aortic Valve Aortic Stenosis V1 1.18m/s AO Mean GR. 9mmHg V2 2.07m/s AO Peak GR. 17mmHg LVOT Diameter 2.1 (1.8-2.4cm) Doppler XIOMARA 1.97cm2 AI P 1/2 Time 434.72ms Pulmonic Valve V2 1.28m/s Tricuspid Valve TR Velocity 2.75m/s RVSP 30mmHg Other Information Quality : Technically Difficult Rhythm : Technically limited study due to pt coughing Conclusion LV EJECTION FRACTION IS 65% MODERATELY CALCIFIED AORTIC LEAFLETS NORMAL MV,TV AND PV NO EFFUSION NORMAL RV FUNCTION CALCIFIED AORTIC LEAFLETS MILD AORTIC STENOSIS AORTC VALVE AREA 1.97 CM SQUARE AND IS REDUCED NORMAL RV FUNCTION Condition at Discharge: Good Final Diagnosis/Problems List Community-acquired pneumonia, Gram-positive versus Gram-negative Acute hypoxic respiratory failure MRSA nares positive Type 2 diabetes Hypertension Hyponatremia Discharge Disposition: Home Discharge Instruct/Medications Diet: Consistent carbohydrate Activity: No Restrictions, As Tolerated Follow Up/Referral: Please follow up in discharge clinic Please follow up with PCP in 1-2 weeks Medications: Doxycycline 100 mg twice a day for 4 days Prednisolone 40 mg once a day for 2 days Discharge Statement: "Patient was advised to return to the ER or call 911 if any headaches, dizziness, shortness of breath, chest pain, abdominal pain, bleeding, fevers, or worsening of medical condition. Patient was counseled about treatment plan, medications, possible side effects, patientverbalized understanding. All questions were answered to the best of my ability. This discharge took greater then 30 minutes in planning, reviewing documentation, counseling the patient, and discussing with other team members." ASSESSMENT ASSESSMENT Assessment Community-acquired pneumonia, Gram-positive versus Gram-negative Acute hypoxic respiratory failure MRSA nares positive Type 2 diabetes Hypertension Hyponatremia Date of Service: Aug 13, 2024 Billing Provider: JASON SOMERS MD Common Visit Codes: 02447-DYJ/OBS DISCH DAY >30min DEBORAH REYES Aug 13, 2024 13:47 JASON SOMERS MD Aug 15, 2024 21:51
== END 2024-08-13 16:20 | disposition home or self-care (01) | DRG 177 ==
LOC: ER 18:28 → OVERFLOW 22:22 → WEST WING 08-11 17:50 → CENTRAL 08-12 15:07
PROVIDERS: ADMIT Student in an Organized Health Care Education/Training Program; ATTEND Student in an Organized Health Care Education/Training Program
DX: J15.69 Pneumonia due to other Gram-negative bacteria (principal); J96.01 Acute respiratory failure with hypoxia; E87.1 Hypo-osmolality and hyponatremia; Z20.822 Contact with and (suspected) exposure to COVID-19; I10 Essential (primary) hypertension; E11.9 Type 2 diabetes mellitus without complications; J15.9 Unspecified bacterial pneumonia; Z79.899 Other long term (current) drug therapy
CPT/HCPCS: 36415; 36600; 71045; 80048; 80053; 82805; 82962; 83036; 83605; 83735; 83880; 83930; 84443; 84484; 85025; 86141; 87081; 87426; 87804; 93005; 93306; 94640; G0378; J1815